=== PATIENT | male | born 1975 | race African-American/Black ===

== ENCOUNTER 2017-02-27 05:42 | Emergency (ER) | payer OTHER ==
[~2017-02-27] VITALS: Ht 167.6 cm; Wt 65.0 kg
[~2017-02-27 05:42] MED LIST: HYDR-3534 PO; IBUP-232 PO
[2017-02-27 05:46] VITALS: BP 120/73; PULSE 57; RESP 16; TEMP 98; O2SAT 99
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
[2017-02-27] MEDS ORDERED: IBUPROFEN 600 MG TAB PO ONE (06:45)
[2017-02-27] MEDS ORDERED: ACETAMINOPHEN/HYDROcodone 325 MG/5 MG TAB PO ONE (06:45)
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
[2017-02-27 06:52] LABS: AUTOMATED NEUTROPHIL # 2.6 TH/MM3 (1.8-7.7); BASOPHIL # 0.1 TH/MM3 (0-0.2); BASOPHIL % 1.1 % (0.0-2.0); EOSINOPHIL # 0.1 TH/MM3 (0-0.4); EOSINOPHIL % 2.8 % (0.0-4.0); HEMATOCRIT 40.5 % (39.0-51.0); HEMO FLAGS DIFF FINAL; LYMPH % 38.9 % (9.0-44.0); LYMPHOCYTE # 2.1 TH/MM3 (1.0-4.8); MEAN CELL VOLUME 89.3 FL (80.0-100.0); MEAN CORPUSCULAR HEMOGLOBIN 29.1 PG (27.0-34.0); MEAN CORPUSCULAR HGB CONC 32.6 % (32.0-36.0); MONO % 7.8 % (0.0-8.0); NEUT % 49.4 % (16.0-70.0); PLATELET COUNT 179 TH/MM3 (150-450); RED BLOOD COUNT 4.54 MIL/MM3 (4.50-5.90); RED CELL DISTRIBUTION WIDTH 13.6 % (11.6-17.2); WHITE BLOOD COUNT 5.3 TH/MM3 (4.0-11.0)
[2017-02-27 07:37] VITALS: BP 108/57; PULSE 50; RESP 18; O2SAT 97
[2017-02-27 07:38] LABS: ANION GAP 3 MEQ/L (5-15); BICARBONATE 27.8 MEQ/L (21.0-32.0); BLOOD UREA NITROGEN 6 MG/DL (7-18); CHLORIDE 110 MEQ/L (98-107); GLOMERULAR FILTRATION RATE 89 ML/MIN (>89); POTASSIUM 4.2 MEQ/L (3.5-5.1); SODIUM (NA) 141 MEQ/L (136-145)
[2017-02-27] MEDS ORDERED: IBUP-232 PO (08:16)
--- NOTE | 2017-02-27 08:16 | PD ---
Physical Exam Narrative Received sign out from previous team to follow up labs and xray. 41yo M presents with pain in right medial aspect of tibia for 4 days. No fever. Denies any trauma. Labs reviewed, no leukocytosis. ESR normal. BMP unremarkable. C-reactive normal. Xray right tib/fib showed soft tissue swelling without acute fracture. Pt given lortab and ibuprofen from previous team and states pain has improved. No signs of infection on exam. Will have pt follow up as outpatient. Data Data Last Documented VS Vital Signs Date Time Temp Pulse Resp B/P Pulse Ox O2 Delivery O2 Flow Rate FiO2 02/27/17 07:37 50 18 108/57 97 Room Air 02/27/17 05:46 98.0 Orders Complete Blood Count With Diff (02/27/17 06:31) Basic Metabolic Panel (Bmp) (02/27/17 06:31) C-Reactive Protein (Crp) (02/27/17 06:31) Westergren Sedimentation Rate (02/27/17 06:31) Tibia/Fibula (Ap/Lat) (02/27/17 ) Acetamin-Hydrocod 325-5 Mg ([place] 5-325 (02/27/17 06:45) Ibuprofen (Motrin) (02/27/17 06:45) Labs Laboratory Tests Test 02/27/17 06:45 White Blood Count 5.3 TH/MM3 Red Blood Count 4.54 MIL/MM3 Hemoglobin 13.2 GM/DL Hematocrit 40.5 % Mean Corpuscular Volume 89.3 FL Mean Corpuscular Hemoglobin 29.1 PG Mean Corpuscular Hemoglobin 32.6 % Concent Red Cell Distribution Width 13.6 % Platelet Count 179 TH/MM3 Mean Platelet Volume 7.1 FL Neutrophils (%) (Auto) 49.4 % Lymphocytes (%) (Auto) 38.9 % Monocytes (%) (Auto) 7.8 % Eosinophils (%) (Auto) 2.8 % Basophils (%) (Auto) 1.1 % Neutrophils # (Auto) 2.6 TH/MM3 Lymphocytes # (Auto) 2.1 TH/MM3 Monocytes # (Auto) 0.4 TH/MM3 Eosinophils # (Auto) 0.1 TH/MM3 Basophils # (Auto) 0.1 TH/MM3 CBC Comment DIFF FINAL Differential Comment Erythrocyte Sedimentation Rate 7 mm/hr Sodium Level 141 MEQ/L Potassium Level 4.2 MEQ/L Chloride Level 110 MEQ/L Carbon Dioxide Level 27.8 MEQ/L Anion Gap 3 MEQ/L Blood Urea Nitrogen 6 MG/DL Creatinine 1.11 MG/DL Estimat Glomerular Filtration 89 ML/MIN Rate Random Glucose 88 MG/DL Calcium Level 8.6 MG/DL C-Reactive Protein LESS THAN 0.29 MG/DL MDM Supervised Visit with DAISY: No Diagnosis Primary Impression: Right leg pain Patient Instructions: General Instructions Departure Forms: Tests/Procedures Additional Instruction: Please follow up with your PMD in 3-7 days. Return to the ED if symptoms worsen. Med/Other Pt SpecificInfo: Prescription(s) given Scripts Ibuprofen 600 Mg [id number] Mg PO Q8HR PRN (PAIN) #20 TAB Ref 0 Prov:Sylvia Graves DO 02/27/17 Disposition: 01 DISCHARGE HOME Condition: Stable Sylvia Graves DO Feb 27, 2017 08:16
[2017-02-27 08:40] VITALS: BP 112/58
== END 2017-02-27 08:41 | disposition home or self-care (01) ==
LOC: NEPE 05:42
DX: M79.604 Pain in right leg (principal); Z79.1 Long term (current) use of non-steroidal anti-inflammatories (NSAID)
CPT/HCPCS: 73590; 80048; 85025; 85652; 86140; 99284